=== PATIENT | male | born 1945 | race African-American/Black ===

== ENCOUNTER 2017-07-10 06:15 | Day surgery (SDC) | payer OTHER ==
[2017-07-09 15:53] VITALS: BMI 31.1
[2017-07-10 06:52] LABS: INR 1.27 (0.82-1.09)
[2017-07-10 06:54] LABS: ACTIVATED PTT 30.5 SECONDS (26.9-34.4)
[2017-07-10] MEDS ORDERED: MIDAZOLAM HCL 2 MG/2 ML SINGLE DOSE VIAL ONE (07:57)
[2017-07-10] MEDS ORDERED: PROPOFOL 20 ML ONE (07:58)
--- NOTE | 2017-07-10 07:58 | HP ---
History & Physical Update - History History: No Change - Physical Physical: No Change - Assessment Assessment: No Change - Plan Plan: No Change
--- NOTE | 2017-07-10 08:00 | OP ---
Operative Note - Note: Operative Date: 07/10/17 Pre-Operative Diagnosis: prostate cancer Operation: prostate cryoablation and cystoscopy Findings: heterogeneous prostate Post-Operative Diagnosis: Same as Pre-op Surgeon: Burak Chow Anesthesiologist/AERIAL TRAM OPERATOR: Isacc Adair Anesthesia: General Estimated Blood Loss (mls): 0 Drains & Tubes with Location: 18 fr garcia Operative Report Dictated: Yes
[2017-07-10] MEDS ORDERED: SODIUM CHLORIDE 0.9% P/F 10 ML VIAL IJ ONE (08:01)
[2017-07-10] MEDS ORDERED: SUCCINYLCHOLINE CHLORIDE 200 MG/10 ML VIAL ONE (08:01)
[2017-07-10] MEDS ORDERED: ceFAZolin SODIUM 1 GM VIAL IVPB ONE (08:12)
[2017-07-10] MEDS ORDERED: ceFAZolin SODIUM 1 GM VIAL ONE (08:14)
[2017-07-10] MEDS ORDERED: DEXAMETHASONE SOD PHOSPHATE 4 MG/1 ML VIAL ONE (08:33)
[2017-07-10] MEDS ORDERED: oxyCODONE HCL 5 MG TABLET PO PRN (09:58)
[2017-07-10] MEDS ORDERED: ONDANSETRON 4 MG/2 ML VIAL IVPUSH PRN (09:58)
[2017-07-10] MEDS ORDERED: LACTATED RINGERS SOLUTION 1,000 ML IV SCH (10:00)
--- NOTE | 2017-07-10 10:41 | OP ---
DATE OF OPERATION: 07/10/2017 PREOPERATIVE DIAGNOSIS: Prostate cancer. POSTOPERATIVE DIAGNOSIS: Prostate cancer. PROCEDURES: Prostate cryoablation and cystoscopy. SURGEON: Burak Reyez MD CREDIT RESOLUTION REPRESENTATIVE: None. ANESTHESIA: General via laryngeal mask. ANESTHESIOLOGIST: Isacc Adair MD SPECIMENS: None. CULTURES: None. DRAINS: An 18-Leb[place] Fan catheter. ESTIMATED BLOOD LOSS: Negligible. COMPLICATIONS: None. PROCEDURE: The patient was brought into the operating room and placed on the operating room table in the supine position. After administration of general anesthesia via laryngeal mask, intravenous antibiotics were administered. The genitals and perineum were shaved first and then prepped and draped in the usual manner. An 18-Leb[place] Fan catheter was placed per urethra, 10 mL was placed in the balloon, and then the bladder was filled with 300 mL of sterile normal saline, and the Fan catheter was clamped. Now, a transrectal ultrasound probe was inserted, and the planning for the prostate cryoablation was done. The prostate cryoablation probes were then placed, per the plan, and their position confirmed under ultrasound guidance. Measurements were taken. They were set to the proper length and then the Fan catheter was removed. A flexible cystoscopy was confirmed, which confirmed no probes had penetrated the prostatic urethra or the bladder. A Super Stiff guide wire was passed through the Fan catheter and the cystoscope was removed. Now, the urethra warmer was passed through, over the Super Stiff guide wire, into the bladder, and left the place, and urethral warming was started. Now, prostate cryoablation was done with 2 free cycles. Prior to this, the temperature sensors for the [place] fascia and external sphincter were placed. At the end of the procedure, the probes were all removed and manual compression of the perineum achieved hemostasis. Urethral warmer was left in place for an additional 5 minutes and then removed. The 18-Lebanese Fan catheter was replaced, placed in gravity drainage, and returned clear. He tolerated the procedure well, was awoken from anesthesia in the operating room, and transferred to the recovery room in stable condition. BURAK REYEZ M.D. [id number]
[2017-07-10 11:20] VITALS: TEMP 98.2
[2017-07-10 13:54] VITALS: BP 154/80; PULSE 87
== END 2017-07-10 13:55 | disposition home or self-care (01) ==
LOC: JASU-SURG 06:15
PROVIDERS: ATTEND Urology
PROC: 0V508ZZ Destruction of Prostate, Via Natural or Artificial Opening Endoscopic (ICD-10-PCS; principal; 2017-07-10 08:00)
DX: C61 Malignant neoplasm of prostate (principal)
CPT/HCPCS: 55873; C2618; 36415; 85610; 85730; 94760